=== PATIENT | female | born 1970 | race Caucasian/White ===

== ENCOUNTER → 2020-10-09 | Outpatient (CLI) | payer BC | END | disposition home or self-care (01) | LOC: MRI 00:30 | PROVIDERS: ATTEND Family Medicine | DX: M47.892 Other spondylosis, cervical region (principal); R20.2 Paresthesia of skin; R53.1 Weakness ==

== ENCOUNTER 2021-09-23 10:42 | Emergency (ER) | payer OTHER, BC ==
[~2021-09-23] VITALS: Wt 61.2 kg
[2021-09-23] MEDS ORDERED: METHOCARBAMOL500 M1 PO (14:07)
[2021-09-23] MEDS ORDERED: Motrin,Rufen400 MG PO (14:07)
== END 2021-09-23 14:09 | disposition home or self-care (01) ==
LOC: ED 10:42
DX: S16.1XXA Strain of muscle, fascia and tendon at neck level, initial encounter (principal); S13.4XXA Sprain of ligaments of cervical spine, initial encounter; Z88.0 Allergy status to penicillin; Z88.1 Allergy status to other antibiotic agents; V43.52XA Car driver injured in collision with other type car in traffic accident, initial encounter; Y93.89 Activity, other specified; Y92.89 Other specified places as the place of occurrence of the external cause; Y99.8 Other external cause status